=== PATIENT | male | born 1955 | race Caucasian/White ===

== ENCOUNTER 2018-04-26 02:12 | Emergency (ER) | payer OTHER ==
[2018-04-26] MEDS: morphine 2 MG INJ IV (03:47)
[2018-04-26] MEDS: SOD CHLORIDE 0.9% 1,000 ML IV (03:47)
[2018-04-26] MEDS: ONDANSETRON 4 MG INJ IV (03:47)
[2018-04-26 03:52] LABS: ADD MAN DIFF? NO
[2018-04-26 04:00] LABS: ADD UMIC YES; UR ASCORBIC ACID NEGATIVE (NEGATIVE); UR BILIRUBIN (Dip) NEGATIVE (NEGATIVE); UR BLOOD (Dip) 3+ mg/dL (NEGATIVE); UR CLARITY CLEAR (CLEAR); UR COLOR YELLOW (YELLOW); UR GLUCOSE (Dip) NEGATIVE (NEGATIVE); UR KETONES (Dip) NEGATIVE (NEGATIVE); UR LEUKOCYTE ESTERASE (Dip) NEGATIVE Leu/ul (NEGATIVE); UR NITRITE (Dip) NEGATIVE (NEGATIVE); UR RBC 52 /HPF (0-5); UR SPECIFIC GRAVITY (Dip) 1.021 (1.003-1.030); UR TOTAL PROTEIN (Dip) NEGATIVE (NEGATIVE); UR UROBILINOGEN (Dip) NEGATIVE (NEGATIVE); UR WBC 7 /HPF (0-5)
[2018-04-26 04:11] LABS: MONOCYTES % 3.7 % (0.0-11.0); POSITIVE DIFF @See below
[2018-04-26 04:18] LABS: ALANINE AMINOTRANSFERASE 29 IU/L (13-69); ALBUMIN 4.5 g/dl (3.3-4.9); ALBUMIN/GLOBULIN RATIO 1.21; ALKALINE PHOSPHATASE 58 IU/L (42-121); ANION GAP 16 (8-16); ASPARTATE AMINO TRANSFERASE 32 IU/L (15-46); BILIRUBIN,INDIRECT 0.4 mg/dl (0-1.1); BILIRUBIN,TOTAL 0.4 mg/dl (0.2-1.3); BLOOD UREA NITROGEN 34 mg/dl (7-20); CALCIUM 9.2 mg/dl (8.4-10.2); CARBON DIOXIDE 24 mmol/L (21-31); CHLORIDE 107 mmol/L (97-110); CREATININE 1.05 mg/dl (0.61-1.24); GLUCOSE 149 mg/dl (70-220); LIPASE 88 U/L (23-300); POTASSIUM 4.5 mmol/L (3.5-5.1); SODIUM 142 mmol/L (135-144); TOTAL PROTEIN 8.2 g/dl (6.1-8.1)
[2018-04-26] MEDS: HYDROmorphONE 0.5 MG/0.5 ML SYG IV (04:41)
[2018-04-26 05:36] LABS: WHITE BLOOD COUNT 12.6 10^3/ul (4.8-10.8)
[2018-04-26 05:36] LABS: HEMATOCRIT 44.1 % (42.0-52.0); LYMPHOCYTES % 7.3 % (15.0-51.0); MEAN CORPUSCULAR HEMOGLOBIN 31.2 pg (29.0-33.0); MEAN CORPUSCULAR VOLUME 91.7 fl (82.0-101.0); MEAN PLATELET VOLUME 11.2 fl (7.4-10.4); NEUTROPHILS % 88.6 % (39.0-77.0); RED BLOOD COUNT 4.81 10^6/ul (4.70-6.10); RED CELL DISTRIBUTION WIDTH 12.5 % (11.5-14.5)
[2018-04-26 05:37] LABS: BASOPHILS % 0.1 % (0.0-2.0); LYMPHOCYTES # 0.9 10^3/ul (0.8-2.9); MONOCYTE # 0.5 10^3/ul (0.3-0.9); NEUTROPHIL # 11.1 10^3/ul (1.6-7.5)
[2018-04-26 05:38] LABS: PLATELET COUNT 199 10^3/UL (140-415)
[2018-04-26] MEDS: KETOROLAC 30 MG INJ IV (06:43)
== END 2018-04-26 07:05 | disposition home or self-care (01) ==
LOC: E/R 02:12
DX: N21.1 Calculus in urethra (principal); N13.30 Unspecified hydronephrosis; R40.2142 Coma scale, eyes open, spontaneous, at arrival to emergency department; R40.2252 Coma scale, best verbal response, oriented, at arrival to emergency department; R40.2362 Coma scale, best motor response, obeys commands, at arrival to emergency department
CPT/HCPCS: 36415; 74176; 76705; 80053; 81001; 83690; 85025; 96374; 96375; 99285-25